=== PATIENT | male | born 1945 | race Two or more races ===

== ENCOUNTER 2021-02-08 08:30 | Inpatient (IN) | payer OTHER ==
[~2021-02-08] VITALS: Ht 177.8 cm; Wt 112.9 kg
[2021-02-08] MEDS ORDERED: LIPITOR20 MG PO (10:05)
[2021-02-08] MEDS ORDERED: TOPROL XL25 M1 PO (10:06)
[2021-02-08] MEDS ORDERED: TAMS0.4C PO (10:06)
[2021-02-08] MEDS ORDERED: ALLOPURINOL100 MG PO (10:07)
[2021-02-16] MEDS ORDERED: PERCOCET 5-3251 EACH PO (16:10)
[2021-02-16] MEDS ORDERED: DUI500 PO ×2 (16:10→16:13)
[2021-02-16] MEDS ORDERED: ELIQUIS2.5 MG PO (16:13)
== END 2021-02-16 18:51 | disposition home or self-care (01) | DRG 470 ==
LOC: O/R 02-14 05:45 → SURH 02-14 05:45
PROVIDERS: ADMIT Orthopaedic Surgery; ATTEND Orthopaedic Surgery
PROC: 0SRD0J9 Replacement of Left Knee Joint with Synthetic Substitute, Cemented, Open Approach (ICD-10-PCS; principal; 2021-02-14 09:00)
DX: M17.12 Unilateral primary osteoarthritis, left knee (principal); N18.4 Chronic kidney disease, stage 4 (severe); E03.8 Other specified hypothyroidism; Z20.822 Contact with and (suspected) exposure to COVID-19; I13.10 Hypertensive heart and chronic kidney disease without heart failure, with stage 1 through stage 4 chronic kidney disease, or unspecified chronic kidney disease; T46.3X1A Poisoning by coronary vasodilators, accidental (unintentional), initial encounter; I95.2 Hypotension due to drugs; Y92.230 Patient room in hospital as the place of occurrence of the external cause

== ENCOUNTER 2021-02-09 15:29 | Outpatient (CLI) | payer OTHER ==
[~2021-02-09 15:29] MED LIST: ALLOPURINOL100 MG PO; LIPITOR20 MG PO; TAMS0.4C PO; TOPROL XL25 M1 PO
== END 2021-02-09 15:34 | disposition home or self-care (01) ==
LOC: LAB 15:29
PROVIDERS: ATTEND Internal Medicine Hematology & Oncology
DX: D68.8 Other specified coagulation defects (principal); D69.49 Other primary thrombocytopenia